=== PATIENT | female | born 1990 | race Caucasian/White ===

== ENCOUNTER 2017-02-22 16:00 | Observation (INO) | payer MEDICAID ==
[~2017-02-22] VITALS: Ht 167.6 cm; Wt 90.7 kg
[2017-02-22] MEDS ORDERED: LACTATED RINGER'S 1,000 ML IV ONE (17:08)
[2017-02-22 18:23] LABS: Calcium 8.5 mg/dL (8.5-10.1); Potassium 3.9 mmol/L (3.5-5.1)
== END 2017-02-22 19:18 | disposition home or self-care (01) | DRG 566 ==
LOC: LDRP 16:00
PROVIDERS: ADMIT Specialist; ATTEND Specialist
DX: O62.9 Abnormality of forces of labor, unspecified (principal); O26.893 Other specified pregnancy related conditions, third trimester; O21.9 Vomiting of pregnancy, unspecified; R42 Dizziness and giddiness; Z3A.32 32 weeks gestation of pregnancy
CPT/HCPCS: 36415; 59025; 80048; 81002; 82962; G0378; 96361

== ENCOUNTER 2017-04-17 10:35 | Observation (INO) | payer MEDICAID ==
[2017-04-17] MEDS ORDERED: PREN-153 OR (11:15)
[2017-04-17 12:59] LABS: Urine Bilirubin Negative (Negative); Urine Blood Negative /uL (Negative); Urine Color Yellow (Yellow); Urine Glucose Normal (Normal); Urine Ketone Negative (Negative); Urine Mucus FEW (None Seen); Urine Nitrite Negative (Negative); Urine RBC <1 /hpf (0 - 4); Urine Squamous Epithelial Cell FEW /hpf (<5); Urine Urobilinogen Normal (Negative); Urine pH 6.5 (5.0-8.0)
== END 2017-04-17 12:30 | disposition home or self-care (01) | DRG 566 ==
LOC: LDRP 10:35
PROVIDERS: ADMIT Obstetrics & Gynecology; ATTEND Obstetrics & Gynecology
DX: O48.0 Post-term pregnancy (principal); O40.3XX0 Polyhydramnios, third trimester, not applicable or unspecified; Z3A.40 40 weeks gestation of pregnancy
CPT/HCPCS: 76818; 81001; G0378

== ENCOUNTER 2017-04-18 05:00 | Inpatient (IN) | payer MEDICAID ==
[2017-04-18] VITALS (12 sets, daily range): BP systolic 125–145; BP diastolic 66–85
[~2017-04-18] VITALS: Ht 30.5 cm; Wt 0.5 kg
[~2017-04-18 05:00] MED LIST: PREN-153 OR
[2017-04-18 05:55] LABS: Urine Bilirubin Negative (Negative); Urine Blood Negative /uL (Negative); Urine Color Yellow (Yellow); Urine Glucose Normal (Normal); Urine Ketone Negative (Negative); Urine Mucus FEW (None Seen); Urine Nitrite Negative (Negative); Urine RBC 1 /hpf (0 - 4); Urine Squamous Epithelial Cell FEW /hpf (<5); Urine Urobilinogen Normal (Negative); Urine pH 6.5 (5.0-8.0)
[2017-04-18 05:56] LABS: Basophils # (auto) 0.1 uL; Basophils % (auto) 1.1 % (0.0-2.0); CONDITION Y; DEFINITIVE SEE PRINTOUT; Eosinophils # (auto) 0.1 uL; Eosinophils % (auto) 0.6 % (0.0-7.0); Hematocrit 35.7 % (36.0-46.0); Hemoglobin 11.6 g/dL (12.2-16.2); Lymphocytes # (auto) 3.3 uL; Lymphocytes % (auto) 26.7 % (10.0-50.0); Mean Corpuscular Hemoglobin 24.4 pg (28.0-32.0); Mean Corpuscular Hgb Conc. 32.6 g/dL (32.0-36.0); Mean Platelet Volume 8.1 fL (7.4-10.4); Monocytes # (auto) 0.4 uL; Monocytes % (auto) 3.3 % (0.0-12.0); Neutrophils # (auto) 8.4 uL; Neutrophils % (auto) 68.3 % (37.0-80.0); Platelet Count (auto) 263 10^3/uL (140-450); Red Cell Distribution Width 19.1 % (11.6-16.0); White Blood Cell 12.2 10^3/uL (4.4-10.8)
[2017-04-18 06:10] LABS: INR 0.9 (0.9-1.15); Partial Thromboplastin Time 27.2 sec (22.64-33.71); Prothrombin Time 9.8 sec (9.37-12.3)
[2017-04-18 06:26] LABS: Albumin 2.5 g/dL (3.4-5.0); Bilirubin, Total 0.2 mg/dL (0.2-1.0); Calcium 8.8 mg/dL (8.5-10.1); Potassium 3.6 mmol/L (3.5-5.1); Total Protein 6.4 g/dL (6.4-8.2)
[2017-04-18] MEDS ORDERED: MORPHINE SULF(PF) 0.5MG/ML 10ML VIAL ONE (08:52)
[2017-04-18] MEDS ORDERED: fentaNYL CITRATE 100 MCG/2 ML VL ONE (08:53)
[2017-04-18] MEDS ORDERED: MIDAZOLAM HCL 1MG/1ML-2 ML VIAL ONE (08:53)
[2017-04-18] MEDS ORDERED: TETRACAINE 1% INJ 2 ML VIAL IJ ONE (08:53)
[2017-04-18] MEDS ORDERED: ceFAZolin 1GM VL ONE (09:21)
[2017-04-18] MEDS ORDERED: MORPHINE SULF INJ 2 MG/ML SYRINGE 1ML IV PRN (10:00)
[2017-04-18] MEDS ORDERED: ONDANSETRON HCL 4 MG/2 ML VIAL IV PRN ×2 (10:00→10:30)
[2017-04-18] MEDS ORDERED: LACT. RINGERS/OXYTOCIN 20UNITS 1,000 ML IV SCH (10:15)
[2017-04-18] MEDS ORDERED: METHYLERGONOVINE MALEATE 0.2 MG/ML AMP IM ONE ×2 (10:20→10:30)
[2017-04-18] MEDS ORDERED: LABETALOL HCL 5 MG/ML 4ML SYRINGE IV PRN (10:30)
[2017-04-18] MEDS ORDERED: ONDANSETRON HCL 4 MG/2 ML VIAL IV ONE (10:30)
[2017-04-18] MEDS ORDERED: KETOROLAC TROMETH 30 MG/ML 1ML VIAL IV ONE (10:30)
[2017-04-18] MEDS ORDERED: MIDAZOLAM HCL 1MG/1ML-2 ML VIAL IV PRN (10:30)
[2017-04-18] MEDS ORDERED: ePHEDrine SULFATE 50 MG/ML AMP IV PRN (10:30)
[2017-04-18] MEDS ORDERED: diphenhdrAMINE HCL 50 MG/1 ML VL IV PRN (10:30)
[2017-04-18] MEDS ORDERED: DEXAMETHASONE SOD PHOS 10MG/1ML VIAL INJ IV PRN (10:30)
[2017-04-18] MEDS ORDERED: HYDROmorphone HCL 2 MG/ML VL IV PRN ×2 (10:30)
[2017-04-18] MEDS ORDERED: NALBUPHINE HCL 10 MG/1ml INJECTION SUBCUT ONE (10:30)
[2017-04-18] MEDS ORDERED: KETOROLAC TROMETH 30 MG/ML 1ML VIAL IV PRN (10:30)
[2017-04-18] MEDS ORDERED: NALOXONE HCL 0.4 MG/ML VIAL IV PRN (10:30)
[2017-04-18] MEDS: LACT. RINGERS/OXYTOCIN 20UNITS 1,000 ML IV SCH ×2 (11:15→17:55)
[2017-04-18] MEDS ORDERED: MORPHINE SULF INJ 2 MG/ML SYRINGE 1ML IV ONE (12:00)
[2017-04-18] MEDS: KETOROLAC TROMETH 30 MG/ML 1ML VIAL IV PRN (12:24)
[2017-04-18] MEDS: LACTATED RINGER'S 1,000 ML IV SCH ×3 (13:25→22:08)
[2017-04-18] MEDS: HYDROmorphone HCL 2 MG/ML VL IV PRN ×2 (15:41→20:00)
[2017-04-18] MEDS: ceFAZolin 1GM/50ML D5W 50 ML IV SCH (17:14)
[2017-04-18 21:11] LABS: Basophils # (auto) 0.1 uL; Basophils % (auto) 0.3 % (0.0-2.0); CONDITION Y; DEFINITIVE SEE PRINTOUT; Eosinophils # (auto) 0.1 uL; Eosinophils % (auto) 0.4 % (0.0-7.0); Hematocrit 36.3 % (36.0-46.0); Hemoglobin 11.6 g/dL (12.2-16.2); Lymphocytes # (auto) 2.2 uL; Lymphocytes % (auto) 14.3 % (10.0-50.0); Mean Corpuscular Hemoglobin 24.2 pg (28.0-32.0); Mean Corpuscular Hgb Conc. 31.8 g/dL (32.0-36.0); Mean Corpuscular Volume 76.2 fL (80.0-100.0); Mean Platelet Volume 8.1 fL (7.4-10.4); Monocytes # (auto) 0.4 uL; Monocytes % (auto) 2.8 % (0.0-12.0); Neutrophils # (auto) 12.9 uL; Neutrophils % (auto) 82.2 % (37.0-80.0); Platelet Count (auto) 218 10^3/uL (140-450); Red Cell Distribution Width 19.1 % (11.6-16.0); White Blood Cell 15.6 10^3/uL (4.4-10.8)
[2017-04-18 22:03] LABS: Platelet Estimate Adequate
[2017-04-18 22:11] LABS: Giant Platelets Few
[2017-04-18 22:12] LABS: Anisocytosis Slight; Hypochromia Moderate
[2017-04-19] VITALS (7 sets, daily range): BP systolic 110–131; BP diastolic 62–80
[2017-04-19] MEDS: KETOROLAC TROMETH 30 MG/ML 1ML VIAL IV PRN ×2 (00:12→08:24)
[2017-04-19] MEDS: ceFAZolin 1GM/50ML D5W 50 ML IV SCH ×2 (00:33→09:21)
[2017-04-19] MEDS: HYDROmorphone HCL 2 MG/ML VL IV PRN (03:21)
[2017-04-19 06:34] LABS: Basophils # (auto) 0 uL; Basophils % (auto) 0.3 % (0.0-2.0); CONDITION Y; DEFINITIVE SEE PRINTOUT; Eosinophils # (auto) 0.1 uL; Eosinophils % (auto) 0.7 % (0.0-7.0); Hematocrit 34.8 % (36.0-46.0); Hemoglobin 11.1 g/dL (12.2-16.2); Lymphocytes # (auto) 1.9 uL; Lymphocytes % (auto) 11.6 % (10.0-50.0); Mean Corpuscular Hemoglobin 24.4 pg (28.0-32.0); Mean Corpuscular Hgb Conc. 31.9 g/dL (32.0-36.0); Mean Corpuscular Volume 76.6 fL (80.0-100.0); Mean Platelet Volume 8.2 fL (7.4-10.4); Monocytes # (auto) 0.4 uL; Monocytes % (auto) 2.1 % (0.0-12.0); Neutrophils # (auto) 14.3 uL; Neutrophils % (auto) 85.3 % (37.0-80.0); Platelet Count (auto) 218 10^3/uL (140-450); Red Cell Distribution Width 18.6 % (11.6-16.0); White Blood Cell 16.7 10^3/uL (4.4-10.8)
[2017-04-19] MEDS: LACTATED RINGER'S 1,000 ML IV SCH (08:00)
[2017-04-19] MEDS ORDERED: HYDROcodone-ACET 5/325MG TAB PO PRN (11:00)
[2017-04-19] MEDS ORDERED: SODIUM CHLOR 0.9% PF (SALINE LOCK) 10ML VIAL IV SCH (14:00)
[2017-04-19] MEDS: HYDROcodone-ACET 5/325MG TAB PO PRN ×2 (15:15→20:54)
[2017-04-19] MEDS: IBUPROFEN 800 MG TAB PO PRN (17:03)
[2017-04-19] MEDS: DOCUSATE SOD 100 MG CAP PO SCH (21:45)
[2017-04-20] MEDS: HYDROcodone-ACET 5/325MG TAB PO PRN ×3 (02:48→22:17)
[2017-04-20 04:16] VITALS: BP 121/77
[2017-04-20 07:25] VITALS: BP 133/74
[2017-04-20] MEDS: IBUPROFEN 800 MG TAB PO PRN ×2 (07:49→17:13)
[2017-04-20] MEDS: DOCUSATE SOD 100 MG CAP PO SCH ×2 (10:22→22:00)
[2017-04-20 11:50] VITALS: BP 134/80
[2017-04-20 16:16] VITALS: BP 127/71
[2017-04-20 19:30] VITALS: BP 130/76
[2017-04-20 23:00] VITALS: BP 131/72
[2017-04-21] MEDS: IBUPROFEN 800 MG TAB PO PRN (03:51)
[2017-04-21] MEDS: HYDROcodone-ACET 5/325MG TAB PO PRN (03:51)
[2017-04-21 03:53] VITALS: BP 137/80
[2017-04-21 07:57] VITALS: BP 120/85
[2017-04-21] MEDS ORDERED: TETANUS-DIPTH-ACEL PERTUSSIS 0.5ML SYRG IM ONE (08:45)
[2017-04-21] MEDS: DOCUSATE SOD 100 MG CAP PO SCH (09:11)
== END 2017-04-21 10:15 | disposition home or self-care (01) | DRG 540 ==
LOC: LDRP 05:00
PROVIDERS: ADMIT Obstetrics & Gynecology; ATTEND Obstetrics & Gynecology
PROC: 10D00Z1 Extraction of Products of Conception, Low, Open Approach (ICD-10-PCS; principal; 2017-04-18 09:05)
DX: O32.1XX0 Maternal care for breech presentation, not applicable or unspecified (principal); O40.3XX0 Polyhydramnios, third trimester, not applicable or unspecified; O69.81X0 Labor and delivery complicated by cord around neck, without compression, not applicable or unspecified; O77.0 Labor and delivery complicated by meconium in amniotic fluid; Z37.0 Single live birth; Z3A.40 40 weeks gestation of pregnancy
CPT/HCPCS: 36415; 51702; 59025; 76815; 80053; 80307; 81001; 81002; 85025; 85610; 85730; 86850; 86900; 86901; 90715; 96365; 96366; 96372; 96374; 96375; J0690; J1885; J2250